=== PATIENT | male | born 1960 | race Caucasian/White ===

== ENCOUNTER 2019-07-09 15:17 | Outpatient (CLI) | payer OTHER ==
--- NOTE | 2019-07-09 17:39 | RAD ---
RIGHT ANKLE THREE VIEWS: HISTORY: Ankle injury with pain. FINDINGS: Mild soft tissue swelling. No osseous abnormality. IMPRESSION: No acute osseous abnormality. POS: [facility]
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
== END 2019-07-09 15:18 | disposition home or self-care (01) ==
LOC: SCSRAD 15:17
DX: S39.012A Strain of muscle, fascia and tendon of lower back, initial encounter (principal); S16.1XXA Strain of muscle, fascia and tendon at neck level, initial encounter; S90.01XA Contusion of right ankle, initial encounter; M47.816 Spondylosis without myelopathy or radiculopathy, lumbar region
CPT/HCPCS: 72100

== ENCOUNTER 2019-10-13 09:02 | Outpatient (CLI) | payer OTHER ==
--- NOTE | 2019-10-13 11:11 | MRI ---
MR of the rightankle without contrast INDICATION: Right ankle pain predominantly laterally and across the top of the right foot TECHNIQUE: T1, T2 fat sat, PD fat sat axial in addition to sagittal T1, T2 fat sat and coronal PD fat sat sequences were obtained of the rightankle. COMPARISON: None. FINDINGS: Ligaments: ATFL: Intact. PTFL: Intact. Calcaneofibular ligament: Intact. Syndesmotic ligaments: Intact. Deltoid ligament: Intact. Spring ligament: Intact. Visualized Lisfranc ligament: Intact. Tendons: Peroneal tendons: Intact without tenosynovitis. Posterior tibialis: Intact without tenosynovitis. Flexor digitorum longus: Intact without tenosynovitis. Flexor hallucis longus: Intact without tenosynovitis. Extensor hallucis longus: Intact without tenosynovitis. Tibialis anterior: Intact without tenosynovitis. Extensor digitorum longus: Intact without tenosynovitis. Achilles tendon Intact without paratenonitis. Tibiotalar joint: Talar Dome: Intact without evidence of osteochondral defect Joint effusion: None. Subtalar joint: Intact. Bones: There is abnormal increased T2 signal involving the dorsal aspect of the third and second meta tarsals. These are suspicious suspicious for stress fracture involving the proximal second and third metatarsals.. Sinus Tarsi: Normal signal intensity. Plantar fascia: Normal appearing. Visualized intrinsic foot musculature: Normal appearing.. IMPRESSION: 1. Findings suspicious for stress fractures involving the proximal second and third metatarsal shafts and bases. Some of the abnormal signal can be related to degenerative change at the tarsometatarsal articulation. MRI would be helpful for further characterization.
== END 2019-10-13 09:03 | disposition home or self-care (01) ==
LOC: SCSMRI 09:02
PROVIDERS: ATTEND Preventive Medicine Occupational Medicine
DX: M25.571 Pain in right ankle and joints of right foot (principal); M19.071 Primary osteoarthritis, right ankle and foot